=== PATIENT | male | born 1985 | race Caucasian/White ===

== ENCOUNTER 2017-05-16 12:14 | Emergency (ER) | payer SELFPAY | END 2017-05-16 13:37 | disposition home or self-care (01) | LOC: D.ER 12:14 | DX: J06.9 Acute upper respiratory infection, unspecified (principal); J01.90 Acute sinusitis, unspecified; J20.9 Acute bronchitis, unspecified; F17.200 Nicotine dependence, unspecified, uncomplicated ==

== ENCOUNTER 2017-09-25 14:03 | Emergency (ER) | payer OTHER ==
[~2017-09-25] VITALS: Ht 182.9 cm; Wt 72.7 kg
[2017-09-25 14:31] VITALS: BP 116/69; Ht 182.9 cm; Wt 72.7 kg
== END 2017-09-25 15:30 | disposition left against medical advice (07) ==
LOC: D.ER 14:03
DX: Z02.9 Encounter for administrative examinations, unspecified (principal)